=== PATIENT | female | born 1995 | race Hispanic/Latino ===

== ENCOUNTER 2018-03-28 06:54 | Emergency (ER) | payer MEDICAID, OTHER ==
[2018-03-28 07:11] VITALS: BP 133/85
[2018-03-28] MEDS ORDERED: IBUPROFEN PO ONE (07:47)
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
== END 2018-03-28 09:10 | disposition home or self-care (01) ==
LOC: ED 06:54
DX: S13.4XXA Sprain of ligaments of cervical spine, initial encounter (principal); S46.912A Strain of unspecified muscle, fascia and tendon at shoulder and upper arm level, left arm, initial encounter; F17.200 Nicotine dependence, unspecified, uncomplicated; V89.2XXA Person injured in unspecified motor-vehicle accident, traffic, initial encounter; Y93.89 Activity, other specified; Y99.8 Other external cause status; Y92.410 Unspecified street and highway as the place of occurrence of the external cause
CPT/HCPCS: 72040; 99283